=== PATIENT | male | born 2005 | race Caucasian/White ===

== ENCOUNTER 2025-10-08 17:04 | Emergency (ER) | payer OTHER, SELFPAY ==
[2025-10-08 18:21] VITALS: BP 117/78; PULSE 63; RESP 18; TEMP 36.6; O2SAT 96; BMI 32.1
--- NOTE | 2025-10-08 19:09 | EDNOTE_ITS ---
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 Incident happened few minutes prior to ER visit while trying to cut a metal and ankle counter accidentally hit his finger resulting into a 1 cm gaping laceration. Patient is able to bend and extend the finger without any limitation. Tetanus vaccination is 5 months old Related Data Previous Rx's ?Medication ?Instructions ?Recorded ibuprofen 800 mg tablet 800 mg PO Q8H PRN pain #30 t abs 10/08/25 Allergies Allergy/AdvReac Type Severity Reaction Status Date / Time NKA* Allergy Uncoded 10/08/25 17:06 Review of Systems Review of Systems Narrative Review of Systems: Review of system reviewed and within normal limits except mentioned in HPI ED Exam Narrative Physical exam: VITAL SIGNS: Reviewed. GENERAL APPEARANCE: Alert and interactive, follows commands, no acute distress, HEAD AND FACE: Non-traumatic. ENT: PERRL, pink conjunctivitis, eyelid no trauma, Mucous membrane moist. NECK: Supple, nontender, no nuchal rigidity. CHEST: No tenderness, no crepitus, no paradoxical movement, no retractions. LUNGS: Clear, well ventilated, symmetric, no rales, no wheezing, no ronchi, no stridor, good breath sounds bilaterally. HEART: Regular rate, regular rhythm, no murmur, no gallops. ABDOMEN: Soft, positive bowel sounds, nondistended, no guarding, nontender, no rebound, no masses, RECTAL: Deferred. GENITAL: Deferred. NEUROLOGICAL: Gross motor function intact sensory function intact, Appropriate for age. MUSCULOSKELETAL: low back nontender, full range of motion. EXTREMITIES: + 1 cm gaping laceration left middle finger proximal phalanx, full range of motion. SKIN: Color pink, dry, no rash, no lacerations, no abrasions, no contusions. LYMPHATICS: Deferred. Course Quality Measures none Orders Category Date Time Status Ibuprofen Tab [Motrin Tab] Med 10/08/25 19:08 Discontinued 800 mg PO X1 ONE Lidocaine 1% Vial 20 ml [Xylocaine 1% 20 ML] Med 10/08/25 19:08 Discontinued 10 ml INFL X1 ONE Vital Signs Vital signs: Vital Signs Temperature 97.9 F 10/08/25 18:21 Pulse Rate 63 10/08/25 18:21 Respiratory Rate 18 10/08/25 18:21 Blood Pressure 117/78 10/08/25 18:21 Pulse Oximetry (%) 96 10/08/25 18:21 Oxygen Delivery Method Room Air 10/08/25 18:21 PROCEDURES: Laceration Laceration 1: Site: other (Finger) Size (cm): 1 Description: linear Depth: simple, single layer Local Anesthetic: lidocaine 1% Amount of anesthesia used (mL): 2 Pre-repair: wound explored, irrigated extensively and deep structures intact Skin layer closed with: nylon Suture size (cm): 5-0 Number of sutures: 4 Technique: simple, interrupted Wound / Laceration MDM Narrative MDM Narrative:: 20-year-old male patient came in for evaluation regarding laceration to the left middle finger dorsal aspect. Incident happened few minutes prior to ER visit while trying to cut a metal and ankle counter accidentally hit his finger resulting into a 1 cm gaping laceration. Patient is able to bend and extend the finger without any limitation. Tetanus vaccination is 5 months old Repair and suturing was done by me see procedure notes patient is able to bend and extend the finger without any single limitation. I do not suspect any tendon injury at this time. Imaging is not needed at this time. Stable for discharge home Patient data External records reviewed:: None Clinical information provided by:: patient Social determinants that could affect healthcare access:: none Patient has the following chronic illnesses:: None How is presenting disease/condition affected by chronic disease/condition?: no chronic disease Evaluation data The following diagnostics were reviewed and interpreted by me:: other (specify) (None) Lab and/or radiology exams considered but not ordered:: Plan Interpretation Summary: None Medications / Prescriptions Medications or Prescriptions considered but not ordered:: None Medication administrations:: Medication Administration History Discontinued Medications Ibuprofen (Ibuprofen Tab 400 Mg Tablet) 800 mg PO X1 ONE Stop: 10/08/25 19:09 Last Admin: 10/08/25 19:22 Dose: 800 mg Documented By: CHRISS Lidocaine HCl (Lidocaine Hcl 1% 20 Ml Vial) 10 ml INFL X1 ONE Stop: 10/08/25 19:09 Last Admin: 10/08/25 19:22 Dose: 10 ml Documented By: OA None Consultations Consultation(s) initiated? (list below): No Diagnosis Wound Differential Diagnosis: laceration and avulsion of skin Most likely diagnosis given after review of the tests above:: Finger laceration Admission Indicated Admission indicated?: not indicated Admission Request Was there a request for admission?: No Disposition Plan Disposition Plan: Discharge Discharge Attestation Discharge Attestation: The patient and all family members were given an opportunity to ask questions and understood the discharge instructions. Discharge instructions specifically effects, indications for sooner follow up or return to the emergency department, and the expected course of current diagnosis. Patient condition: Stable Discharge Plan Plan Patient Disposition: HOME (Self Care) Discharge Disposition comment: Stable Prescriptions/Referrals Prescriptions/Med Rec: New ibuprofen 800 mg tablet 800 mg PO Q8H PRN (Reason: pain) Qty: 30 0RF Problem List Clinical Impression: Finger laceration Patient/Caregiver Discharge Instructions Discharge Activity: activity as tolerated Education Materials: ED Laceration: All Closures Additional Instructions: Thank you for the opportunity for serving you today. You are stable for discharged . You are advised to: Follow-up with your PCP in 1 to 2 days Return to ED for worsening of symptoms Increase oral fluids Take medication as prescribed Daily dressing with bacitracin as needed For removal of sutures in 7 to 10 days Print Language: [place] Stand Alone Forms: Marlin Award Info., Work/School Release, Patient Portal Info Letter RAE/SANJAY Supervising Physician RAE/SANJAY Supervising Physician: MD Andreas
[2025-10-08] MEDS: LIDOCAINE HCL 1% 20 ML VIAL 10 ML INFL (19:22)
[2025-10-08] MEDS: IBUPROFEN TAB 400 MG TABLET 800 MG PO (19:22)
== END 2025-10-08 20:09 | disposition home or self-care (01) ==
LOC: SERX 20:52
PROVIDERS: Emergency Provider Emergency Medicine; PCP Nurse Practitioner Primary Care
DX: S61.213A Laceration without foreign body of left middle finger without damage to nail, initial encounter (principal); W22.09XA Striking against other stationary object, initial encounter
CPT/HCPCS: 12002; 99281; J3490; A9270